=== PATIENT | male | born 2000 | race Caucasian/White ===

== ENCOUNTER 2024-04-06 11:58 | Emergency (ER) | payer SELFPAY ==
[2024-04-06 12:14] VITALS: BP 145/90; PULSE 70; RESP 16; TEMP 98.8; BMI 26.8
== END 2024-04-06 14:45 | disposition home or self-care (01) ==
LOC: FER 11:58
PROC: 2W3CX1Z Immobilization of Right Lower Arm using Splint (ICD-10-PCS; principal; 2024-04-06)
DX: S52.531A Colles' fracture of right radius, initial encounter for closed fracture (principal); S52.611A Displaced fracture of right ulna styloid process, initial encounter for closed fracture; W00.0XXA Fall on same level due to ice and snow, initial encounter
CPT/HCPCS: 73090-TC-RT-FY; 73110-TC-RT-FY; 99284-25